=== PATIENT | male | born 1980 | race Two or more races ===

== ENCOUNTER 2021-02-17 02:04 | Emergency (ER) | payer SELFPAY ==
[~2021-02-17] VITALS: Ht 172.7 cm; Wt 62.8 kg
[2021-02-17 02:17] VITALS: BP 119/75
--- NOTE | 2021-02-17 02:25 | NUR ---
PT TAKEN TO BED 11.
--- NOTE | 2021-02-17 02:31 | NUR ---
40 YO M BIB SELF WITH C/C OF 10/10 RIGHT LOWER TOOTHACHE X1WK. PT STATES HE TOOK 9 500MG TYLENOLS YESTERDAY IN THE MORNING WITH NO RELIEF. PT STATES PAIN IS SO BAD HE CANNOT EAT . +THC USE, OCCASIONAL METH USE PER PT. JHONATAN PRADO MADE AWARE ABOUT TYENOL USE. DENIES HX, RX AND ALLERGIES
[2021-02-17] MEDS ORDERED: KETOROLAC 60 MG/2 ML VIAL IM ONE (02:35)
--- NOTE | 2021-02-17 02:35 | NUR ---
Patient discharged with v/s stable. Written and verbal after care instructions given and explained. Patient alert, oriented and verbalized understanding of instructions. Ambulatory with steady gait. All questions addressed prior to discharge. ID band removed. Patient advised to follow up with PMD. Rx of NAPROSYN. PENICILLIN given. Patient educated on indication of medication including possible reaction and side effects. Opportunity to ask questions provided and answered.
[2021-02-17] MEDS ORDERED: NAPR-54 PO (02:55)
[2021-02-17] MEDS ORDERED: PENI500T20 PO (02:55)
[2021-02-17 03:05] VITALS: BP 119/75
== END 2021-02-17 03:05 | disposition home or self-care (01) ==
LOC: MED 02:04
DX: K08.89 Other specified disorders of teeth and supporting structures (principal)
CPT/HCPCS: 96372; 99283; J1885